=== PATIENT | female | born 1980 | race Caucasian/White ===

== ENCOUNTER 2016-11-06 12:06 | Emergency (ER) | payer OTHER ==
[2016-11-06 12:06] VITALS: BMI 22.2
[2016-11-06 12:18] VITALS: RESP 18; O2SAT 97
--- NOTE | 2016-11-06 12:49 | C.PDOC ---
History Of Present Illness 36 yo female requests evaluation for possible tampon left in. PT notes she used a tampon on Monday and then had intercourse with her boyfriend. Pt states she was intoxicated so she does not remember taking it out therefore came to ER for evaluation. Notes some pelvic pressure but states the same as she usually gets with her period. No vaginal discharge. No back pain. No fever. No dysuria. No urinary frequency. Time Seen by Provider: 11/06/16 12:24 Chief Complaint (Nursing): Female Genitourinary History Per: Patient History/Exam Limitations: no limitations Onset/Duration Of Symptoms: Days (last night) Past Medical History Vital Signs: Last Vital Signs Temp 98.1 F 11/06/16 13:30 Pulse 71 11/06/16 13:30 Resp 18 11/06/16 13:30 BP 100/70 11/06/16 13:30 Pulse Ox 97 11/06/16 13:30 - Medical History PMH: Hypercholesterolemia - [facility] REMOV INTRALUM EAR FB (08/23/13) Family History: States: Unknown Family Hx - Social History Hx Tobacco Use: No Hx Alcohol Use: Yes Hx Substance Use: No - Immunization History Hx Tetanus Toxoid Vaccination: No Hx Influenza Vaccination: No Hx Pneumococcal Vaccination: No Review Of Systems Constitutional: Negative for: Fever Gastrointestinal: Negative for: Nausea, Vomiting, Abdominal Pain Genitourinary: Negative for: Dysuria, Frequency, Incontinence Physical Exam - Physical Exam Appears: Well, Non-toxic, No Acute Distress Skin: Normal Color, Warm, Dry Head: Atraumatic, Normacephalic Eye(s): bilateral: Normal Inspection, EOMI Nose: Normal Throat: Normal Neck: Normal Chest: Symmetrical Respiratory: No Accessory Muscle Use Gastrointestinal/Abdominal: Normal Exam, Soft, No Tenderness Back: Normal Inspection Pelvic: Normal External Exam, Normal Speculum Exam, Vaginal Bleeding (mild brown blood noted( pt notes last day of menses)), No Vaginal Discharge, No Cervical Motion Tenderness, No Adnexal Tenderness Extremity: Normal ROM Neurological/Psych: Oriented x3, Normal Speech Gait: Steady ED Course And Treatment O2 Sat by Pulse Oximetry: 97 Progress Note: No FB in speculum. No signs or symptoms of infection. Pt instructed to follow up with [facility] in 1-2 days or return to ER if symptoms persist or worsen. Disposition - Disposition Disposition: HOME/ ROUTINE Disposition Time: 12:55 Condition: STABLE Additional Instructions: Follow up with your primary medical doctor or clinic in 2-5 days for further evaluation. Return to the emergency department at any time if symptoms persist or worsen. Instructions: Pelvic Pain in Women (ED) Forms: [facility] (Slovenian) - Clinical Impression Clinical Impression: Pelvic pain
[2016-11-06 13:11] LABS: URINE BILIRUBIN NEGATIVE (NEGATIVE); URINE BLOOD 1+ (NEGATIVE); URINE COLOR Yellow (YELLOW); URINE GLUCOSE (UA) NORMAL (Normal); URINE KETONE NEGATIVE (NEGATIVE); URINE LEUKOCYTE ESTERASE TRACE Leu/uL (Negative); URINE PROTEIN NEGATIVE (NEGATIVE); URINE UROBILINOGEN NORMAL mg/dL (0.2-1.0); WBC URINE 3 /hpf (0-5)
[2016-11-06 13:14] LABS: RBC URINE 6 /hpf (0-3)
[2016-11-06 13:31] VITALS: BP 100/70; PULSE 71; TEMP 98.1
== END 2016-11-06 13:31 | disposition home or self-care (01) ==
LOC: C.ER 12:06
DX: R10.2 Pelvic and perineal pain (principal)